=== PATIENT | female | born 1965 | race Caucasian/White ===

== ENCOUNTER 2021-09-25 08:46 | Day surgery (SDC) | payer MEDICARE, BC, SELFPAY ==
[2021-09-19 11:57] VITALS: BMI 25.3
--- NOTE | 2021-09-24 09:42 | P.CONAN_ITS ---
Documented by User: Delphine Garcia NP 09/24/21 09:46 HPI - Anesthesia Eval Consult details Narrative: 56yo F for Bilateral Eye Muscle lateral rectus Recession Resection, PCP cleared Stable at 07/2021 cardiac visit [facility] Past Medical History Medical History Abdominal hernia ADHD (attention deficit hyperactivity disorder) Anxiety Fibromyalgia Hx of colonic polyp IBS (irritable bowel syndrome) Migraine Myocardial infarction On beta le at home Sjogren's syndrome Surgical History Surgical History History of bunionectomy of both great toes History of endometrial ablation History of local excision of skin lesion History of tubal ligation Hx of section Hx of tonsillectomy S/P right coronary artery (RCA) stent placement Social History Social History Are you a primary healthcare administrator to a significant other at home: No Do you presently have visiting nurse or other home services: No Patient Tobacco Use Status: Former Tobacco user Tobacco use type: Cigarette Have you been hit, kicked, punched, or otherwise hurt by someone within the past year? If so, by whom?: No Are you DNR?: No Advance Directives: No Advance Directives Information Provided: Yes Advance Directives on File: No Recently lost weight without trying: No Eating poorly because of decreased appetite: No Nutrition Risks: No Nutritional Risk Patient : No Meds Allergies Allergy/AdvReac Type Severity Reaction Status Date / Time cephalexin [Keflex] Allergy Severe Anaphylaxis Verified 09/25/21 09:27 penicillin V Allergy Severe Anaphylaxis Verified 09/25/21 09:27 codeine Allergy Unknown Nausea and Verified 09/25/21 09:27 Vomiting, Rash - itchy ergotamine Allergy Unknown severe Verified 09/25/21 09:27 vomiting oxycodone Allergy Unknown Nausea and Verified 09/25/21 09:27 Vomiting, Rash, Itchy Hydrocodone Bitartrate Allergy Unknown Nausea and Uncoded 09/19/21 11:56 Vomiting, Rash, Itchy Home Medications Medication Instructions Recorded Confirmed Last Taken Type aspirin 81 mg tablet,delayed 81 mg PO DAILY 09/19/21 09/19/21 09/24/21 History release losartan 25 mg tablet 25 mg PO DAILY 09/19/21 09/19/21 Unknown History metoprolol tartrate 25 mg tablet 12.5 mg PO BID 09/19/21 09/19/21 09/25/21 07:30 History modafinil 100 mg tablet 100 mg PO DAILY 09/19/21 09/19/21 Unknown History rosuvastatin 40 mg tablet 40 mg PO DAILY 09/19/21 09/19/21 Unknown History Exam Exam Date and Time: September 24, 2021 0942 Height,Weight and Vital Signs: Height 5 ft 3 in Weight 64.864 kg Narrative Narrative: Per 07/2021 cardiac note EKG SB, mod voltage criteria for LVH ECHO EF 55-65% Assessment and Plan Assessment Anesthesia Assessment: Chart Reviewed Documented by User: Natasha Barrera MD 09/25/21 10:35 [facility] Past Medical History Medical History Abdominal hernia ADHD (attention deficit hyperactivity disorder) Anxiety Fibromyalgia Hx of colonic polyp IBS (irritable bowel syndrome) Migraine Myocardial infarction On beta le at home Sjogren's syndrome Functional capacity: independent ambulation Patient : No Family History Family history of problems with anesthesia: No Surgical History Surgical History History of bunionectomy of both great toes History of endometrial ablation History of local excision of skin lesion History of tubal ligation Hx of section Hx of tonsillectomy S/P right coronary artery (RCA) stent placement History of Problems with Anesthesia: No Social History Social History Are you a primary healthcare administrator to a significant other at home: No Do you presently have visiting nurse or other home services: No Patient Tobacco Use Status: Former Tobacco user Tobacco use type: Cigarette Have you been hit, kicked, punched, or otherwise hurt by someone within the past year? If so, by whom?: No Are you DNR?: No Advance Directives: No Advance Directives Information Provided: Yes Advance Directives on File: No Recently lost weight without trying: No Eating poorly because of decreased appetite: No Nutrition Risks: No Nutritional Risk Patient : No Meds Allergies Allergy/AdvReac Type Severity Reaction Status Date / Time cephalexin [Keflex] Allergy Severe Anaphylaxis Verified 09/25/21 09:27 penicillin V Allergy Severe Anaphylaxis Verified 09/25/21 09:27 codeine Allergy Unknown Nausea and Verified 09/25/21 09:27 Vomiting, Rash - itchy ergotamine Allergy Unknown severe Verified 09/25/21 09:27 vomiting oxycodone Allergy Unknown Nausea and Verified 09/25/21 09:27 Vomiting, Rash, Itchy Hydrocodone Bitartrate Allergy Unknown Nausea and Uncoded 09/19/21 11:56 Vomiting, Rash, Itchy Home Medications Medication Instructions Recorded Confirmed Last Taken Type aspirin 81 mg tablet,delayed 81 mg PO DAILY 09/19/21 09/19/21 09/24/21 History release losartan 25 mg tablet 25 mg PO DAILY 09/19/21 09/19/21 Unknown History metoprolol tartrate 25 mg tablet 12.5 mg PO BID 09/19/21 09/19/21 09/25/21 07:30 History modafinil 100 mg tablet 100 mg PO DAILY 09/19/21 09/19/21 Unknown History rosuvastatin 40 mg tablet 40 mg PO DAILY 09/19/21 09/19/21 Unknown History Exam Airway Mallampati Class: II TM Dist: >3cm Neck ROM: Full Denture: Upper Heart: RRR Lungs: CTA Assessment and Plan Final Anesthetic Review Family History of Problems with Anesthesia: No History of Problems with Anesthesia: No ASA Class: II Final Preanesthetic Review: No Changes in Pt Med Stat, Meds/Allgs Chart Reviewed, Consent Obtained/Reviewed and Anes Risks/Benef Reviewed Patient Risk: Low Procedure Risk: Low Anesthetic Plan Anesthetic Plan: GA Disposition: Standard PACU
[2021-09-25] VITALS (16 sets, daily range): BP systolic 94–131; BP diastolic 47–70; PULSE 45–63; RESP 11–20; TEMP 36.1–36.4; O2SAT 91–100
[2021-09-25] MEDS: Lactated Ringers 1,000 ML 100 ML IVCONT (09:46)
--- NOTE | 2021-09-25 11:45 | PC.NURSE ---
anes aware hr down to 41 at times.
--- NOTE | 2021-09-25 13:03 | P.OPHTHAL_ITS ---
Ophthalmology Operative Note Date of Service: 09/25/21 Narrative: Preoperative diagnosis divergence insufficiency. Procedure bilateral lateral rectus resections of [address] Arevalo. Anesthesia general. Complications none. The patient was brought to the operative room placed under general anesthesia. The patient's eyes were prepped and draped in the usual sterile ophthalmic fashion. A lid speculum was placed in the right eye and a peritomy was created around the lateral rectus muscle. The muscle was hooked and grasped near its insertion with a [place] muscle clamp. A 6 mm resection was marked off with cautery and resection point secured with a double-armed Vicryl suture. The distal muscle was then resected and the resection point drawn forward to the original insertion using the Vicryl suture. Conjunctiva was closed with interrupted Vicryl sutures. An identical procedure was then performed on the left eye. The patient was then awoken from general anesthesia and discharged to postoperative recovery in good condition.
[2021-09-25] MEDS: fentaNYL citrate/PF 100 MCG/2 ML VIAL 25 MCG IVPUSH ×3 (13:39→14:08)
[2021-09-25] MEDS: HYDROmorphone HCl 2 MG TABLET PO (13:52)
== END 2021-09-25 16:10 | disposition home or self-care (01) ==
PROVIDERS: PCP Internal Medicine; Visit Provider Ophthalmology
PROC: (CPT 67311; principal; 2021-09-25 11:50)
DX: H51.8 Other specified disorders of binocular movement (principal); H53.2 Diplopia; M35.00 Sjogren syndrome, unspecified; M79.7 Fibromyalgia; G43.909 Migraine, unspecified, not intractable, without status migrainosus; I25.2 Old myocardial infarction; Z98.61 Coronary angioplasty status; F41.9 Anxiety disorder, unspecified; Z79.82 Long term (current) use of aspirin; Z79.899 Other long term (current) drug therapy; Z88.0 Allergy status to penicillin; Z88.8 Allergy status to other drugs, medicaments and biological substances; Z97.3 Presence of spectacles and contact lenses; Z87.891 Personal history of nicotine dependence
CPT/HCPCS: 67311; J0131; J0461; J2250; J2405; J3010